=== PATIENT | female | born 1950 | race African-American/Black ===

== ENCOUNTER 2017-09-24 19:15 | Emergency (ER) | payer MEDICARE, BC ==
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
[2017-09-24] MEDS ORDERED: Proparacaine 0.5% Opth 15 ML BOT ONE (20:19)
[2017-09-24] MEDS ORDERED: Fluorescein Opthalmic Strip ONE (20:19)
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
[2017-09-24] MEDS ORDERED: traMADol HCl 50 MG TAB ONE (20:44)
== END 2017-09-24 20:05 | disposition home or self-care (01) ==
LOC: ERS 19:15
DX: S02.2XXA Fracture of nasal bones, initial encounter for closed fracture (principal); S05.01XA Injury of conjunctiva and corneal abrasion without foreign body, right eye, initial encounter; T14.8XXA Other injury of unspecified body region, initial encounter; E11.9 Type 2 diabetes mellitus without complications; I10 Essential (primary) hypertension; V89.2XXA Person injured in unspecified motor-vehicle accident, traffic, initial encounter
CPT/HCPCS: 70450; 70486; 72125

== ENCOUNTER 2019-10-15 21:55 | Inpatient (IN) | payer MEDICARE, BC, OTHER ==
[~2019-10-15 21:55] MED LIST: Iopamidol 370 76% 100 ML VIAL ONE
[2019-10-15] MEDS ORDERED: Ketamine 50 MG/ML (10ML VIAL) ONE (22:00)
[2019-10-15] MEDS ORDERED: Norepinephrine 4 MG/4 ML VIAL ONE (22:01)
[2019-10-15] MEDS ORDERED: fentaNYL Citrate/PF 2,000 MCG in Sodium Chloride 0.9% 60 ML IV SCH (22:08)
[2019-10-15 22:09] LABS: Hemoglobin 13.8 g/dL (12.0-16.0); Mean Corpuscular HGB CONC 31.1 g/dL (32.0-36.0); Mean Corpuscular Hemoglobin 30.2 pg (27.0-31.0); Mean Corpuscular Volume 97.3 fL (78.0-98.0); Platelet Count 416 thou/uL (130-400); RBC Distribution Width 12.6 % (11.5-14.5); Red Blood Cell (RBC) Count 4.56 mill/uL (4.20-5.40); White Blood Cell (WBC) Count 14.4 thou/uL (4.8-10.8)
[2019-10-15 22:12] LABS: PTT 28.1 SEC (22.9-36.1); Prothrombin Time 13.3 SEC (12.0-14.7)
[2019-10-15 22:25] LABS: Lymphocytes 69 % (21-51); MDiff Complete? YES; Monocytes 1 % (0-10); Neutrophil 30 % (42-75); Platelet Morphology Comment Appears Increased; RBC Morphology Normal
--- NOTE | 2019-10-15 22:25 | RAD ---
PORTABLE CHEST ONE VIEW: Date: 10-15-19 Time: 9:56 p.m. History: Chest pain. FINDINGS: The tip of the endotracheal tube is in the right main bronchus with atelectatic change in the left up per lobe. There is bilateral pulmonary edema. No pneumothoraces are seen. The report was called over the telephone to the Emergency Department physician at 10:20 p.m. POS: YASMEEN
[2019-10-15 22:36] LABS: ALT (SGPT) 32 U/L (8-55); AST (SGOT) 24 U/L (5-34); Albumin 4.6 g/dL (3.4-4.8); Alkaline Phosphatase 97 U/L (40-110); Anion Gap 19 mmol/L (10-20); BUN (Urea Nitrogen) 19 mg/dL (9.8-20.1); Bilirubin, Total 0.2 mg/dL (0.2-1.2); CK (CPK) 106 U/L (29-168); Calc. Creatinine Clearance 0 mL/min (70-130); Calcium 9.3 mg/dL (7.8-10.44); Carbon Dioxide 21 mmol/L (23-31); Chloride 102 mmol/L (98-107); Estimated GFR-MDRD 62; Globulin 3.4 g/dL (2.4-3.5); Glucose 415 mg/dL (80-115); Potassium 3.3 mmol/L (3.5-5.1); Sodium 139 mmol/L (136-145)
--- NOTE | 2019-10-15 22:40 | RAD ---
PORTABLE CHEST ONE VIEW: Date: 10-15-19 Time: 9:59 p.m. FINDINGS: There has been interval repositioning of the endotracheal tube with tip just above the level of the c ryan. Interval improvement in aeration of the left upper lobe is seen. There is bilateral pulmonary edema. No pneumothoraces or large effusions are seen. POS: [facility]
[2019-10-15] MEDS ORDERED: Furosemide 40 MG/4 ML VIAL ONE (22:42)
--- NOTE | 2019-10-15 23:05 | RAD ---
PORTABLE CHEST ONE VIEW: Date: 10-15-19 Time: 10:27 p.m. History: Central line placement. FINDINGS/IMPRESSION: Comparison is made with film earlier same date. There has been interval placement of a left subclavian central line with tip in the projection of the SVC. Nasogastric tube has been place into the stomach with tip excluded from the film. No pneumothor aces are seen. The remainder of the exam is stable. POS: YASME[facility]
[2019-10-15 23:17] LABS: Bacteria/HPF None Seen HPF (None Seen); Bilirubin Negative (Negative); Blood, Urine Trace (Negative); Clarity Turbid (Clear); Glucose, Urine (Dipstick) Greater than 1000 mg/dL (Negative); Leukocyte Negative Leu/uL (Negative); Nitrite Negative (Negative); Protein, Urine (Dipstick) 70 mg/dL (Neg-Trace); RBC/HPF 0-3 HPF (0-3); Squamous Epithelial 0-3 HPF (0-3); Urobilinogen Normal mg/dL (Less than 2); WBC/HPF 0-3 HPF (0-3)
[2019-10-15 23:21] LABS: Amphetamine Not Detected (NotDetected); Barbiturates Screen Not Detected (NotDetected); Benzodiazepine Screen Not Detected (NotDetected); Cocaine Metabolite Screen Not Detected (NotDetected); Medtox Control Line Valid? VALID (VALID); Medtox Reader # READER 4; Methadone Not Detected (NotDetected); Methamphetamine Not Detected (NotDetected); Opiate Screen Not Detected (NotDetected); Oxycodone Screen Not Detected (NotDetected); Phencyclidine (PCP) Not Detected (NotDetected); THC/Cannabinoid Screen Not Detected (NotDetected); Tricyclic Screen Not Detected (NotDetected)
--- NOTE | 2019-10-15 23:47 | CT ---
CT PULMONARY EMBOLISM WITH IV CONTRAST AND 3D POST PROCESSING: History: Respiratory failure. Dyspnea. Chest pain. FINDINGS: There is good contrast opacification of the pulmonary artery vasculature without filling defects to s uggest pulmonary embolism. The thoracic aorta is well opacified without aneurysm or dissection. There are small bilateral pleural effusions. There is consolidative change in the lower lung zones. There are patchy infiltrates bilaterally which may be due to infection or pulmonary edema. No pneumothorace s are seen. Endotracheal and nasogastric tubes are present. There is a left sided central venous cath eter present. IMPRESSION: No CT evidence of pulmonary embolism. POS: [facility]
[2019-10-16] MEDS ORDERED: Cefepime 2 GM VIAL ONE ×2 (00:10→00:13)
[2019-10-16] MEDS ORDERED: Midazolam HCl 5 mg/ml Vial ONE (00:34)
[2019-10-16] MEDS ORDERED: methylPREDNISolone Sod Succ/PF 125 MG/2 ML VIAL ONE (00:39)
[2019-10-16] MEDS ORDERED: Propofol BOLUS 1,000 MG/100 ML VIAL IV PRN ×2 (00:48→01:39)
[2019-10-16] MEDS ORDERED: DISCONTINUE PREVIOUS NARCOTIC PAIN MEDICATIONS AND BENZODIAZEPINES FS SCH ×2 (00:48→01:39)
[2019-10-16] MEDS ORDERED: Lorazepam 2 MG/ML VIAL SLOW IVP PRN (00:48)
[2019-10-16] MEDS ORDERED: Fentanyl BOLUS 250 ML IVPB PRN ×2 (00:48→01:39)
[2019-10-16] MEDS ORDERED: Morphine 2 MG/ML SYRINGE SLOW IVP PRN ×2 (00:48→01:39)
[2019-10-16] MEDS ORDERED: Propofol 1,000 MG/100 ML VIAL IV PRN (00:48)
[2019-10-16] MEDS ORDERED: Lactated Ringer's 1,000 ML IV SCH (01:00)
[2019-10-16] MEDS ORDERED: Dextrose 5% in Water 1,000 ML IV PRN (01:34)
[2019-10-16] MEDS ORDERED: Acetaminophen 650 MG Suppository PR PRN (01:34)
[2019-10-16] MEDS ORDERED: Ondansetron ODT 4 MG TAB PO PRN (01:34)
[2019-10-16] MEDS ORDERED: Acetaminophen 500 MG TAB PO PRN (01:34)
[2019-10-16] MEDS ORDERED: Ondansetron PF 4 MG/2 ML Vial IVP PRN (01:34)
[2019-10-16] MEDS ORDERED: Norepinephrine 8 MG in Dextrose 5% in Water 242 ML IVPB SCH (01:34)
[2019-10-16] MEDS ORDERED: Ventilator Sedation Protocol 1 EACH FS SCH (01:34)
[2019-10-16] MEDS ORDERED: HumaLOG 300 UNITS/3 ML VIAL SC PRN (01:34)
[2019-10-16] MEDS ORDERED: Dextrose 50% Abboject 50 ML SYRINGE SLOW IVP PRN (01:34)
[2019-10-16] MEDS ORDERED: CCU Electrolyte Replacement 1 EACH FS SCH (01:35)
[2019-10-16] MEDS ORDERED: Potassium Phosphate 12 MMOL in Sodium Chloride 0.9% 250 ML 250 ML IV PRN (01:38)
[2019-10-16] MEDS ORDERED: Potassium Chloride 20 MEQ TAB PO PRN (01:38)
[2019-10-16] MEDS ORDERED: Magnesium 2 GM/50 ML 2 GM in Premix Bag 1 BAG IVPB PRN (01:38)
[2019-10-16] MEDS ORDERED: Potassium Phosphate 9 MMOL in Sodium Chloride 0.9% 100 ML IVPB PRN (01:38)
[2019-10-16] MEDS ORDERED: Magnesium Oxide 400 MG TAB PO PRN ×2 (01:38)
[2019-10-16] MEDS ORDERED: Potassium Phosphate 15 MMOL in Sodium Chloride 0.9% 250 ML 250 ML IV PRN (01:38)
[2019-10-16] MEDS ORDERED: Potassium Chloride 40 MEQ in Premix Bag 1 BAG IVPB PRN (01:38)
[2019-10-16] MEDS ORDERED: Potassium Chloride 40 MEQ in Sodium Chloride 0.9% 250 ML 250 ML IVPB PRN (01:38)
[2019-10-16] MEDS ORDERED: PHOS-NAK 1 PKT PACK PO PRN ×2 (01:38)
[2019-10-16] MEDS ORDERED: CCU ELECTROLYTE REPLACEMENT PROTOCOL FS PRN (01:38)
[2019-10-16] MEDS ORDERED: fentaNYL Citrate/PF 2,000 MCG in Sodium Chloride 0.9% 60 ML IV SCH (01:39)
[2019-10-16] MEDS: Sodium Chloride 0.9% 1,000 ML IV SCH ×2 (01:57→20:24)
[2019-10-16] MEDS: HumaLOG 300 UNITS/3 ML VIAL SC PRN (02:31)
--- NOTE | 2019-10-16 03:03 | HP ---
PRIMARY CARE PROVIDER: Dr. Wooten. PRIMARY ADVERTISING SALES EXECUTIVE: Dr. Abbott. CHIEF COMPLAINT: Shortness of breath. HISTORY OF PRESENT ILLNESS: This is a 69-year-old female, who initially presented to [facility] Emergency Department in transport by EMS personnel after patient's called EMS due to his having increased shortness of breath and respiratory distress. The patient's provides the bulk of the history in conjunction with review of electronic medical record and discussing with the emergency room attending given patient's respiratory failure and mechanical ventilation. noted that his with increased respiratory distress beginning abruptly approximately 9:00 p.m. EMS personnel arrived, noting his in respiratory distress with O2 saturations in the 70% range. The patient was given continuous positive airway pressure ventilation en route; however, after evaluation in the emergency room, underwent intubation in the emergency room. denies any recent exposure history, family members with similar illness, or travel history. The patient received influenza vaccination this season, however, no new medications or other vaccinations recently. The denies any chronic lung conditions and states his quit smoking 20 years prior to this evaluation. The patient has never required mechanical ventilation in the past, but does have a history of seasonal allergies, taking oral medication intermittently. In the emergency room, the patient underwent general evaluation including chest imaging, showing bilateral infiltrates, right greater than left with associated pulmonary edema. CT angiogram was also performed showing no evidence for pulmonary embolus. The patient did meet sepsis criteria, receiving multiple medications including Solu-Medrol, vancomycin, cefepime, Lasix, fentanyl, intravenous normal saline in addition to Versed, ketamine, and Zemuron. The patient was also noted with hypotension and initiated on Levophed infusion at 5 mcg/minute. PAST MEDICAL HISTORY: 1. Diabetes mellitus type 2. 2. Hyperlipidemia. 3. Hypertension. 4. Seasonal allergies. 5. Osteoarthritis. PAST SURGICAL HISTORY: Status post bilateral total knee arthroplasty. CURRENT MEDICATIONS: 1. Omeprazole 20 mg p.o. daily. 2. Singulair 10 mg p.o. daily. 3. Metoprolol 25 mg p.o. daily. 4. Kombiglyze XR 2.03/1000 mg two tablets p.o. daily. 5. Meloxicam 7.5 mg p.o. b.i.d. 6. Losartan/hydrochlorothiazide 100/12.5 mg one tablet p.o. daily. 7. Farxiga 10 mg p.o. daily. ALLERGIES: NO KNOWN DRUG ALLERGIES. FAMILY HISTORY: Positive for hypertension and diabetes mellitus. SOCIAL HISTORY: The patient resides in [place], [place]. Accompanied by her family in the critical care unit. No current tobacco, alcohol, or illicit drug use. Quit smoking greater than 20 years prior to this evaluation. Functional of all activities of daily living. REVIEW OF SYSTEMS: Unobtainable as the patient on mechanical ventilation. PHYSICAL EXAMINATION: VITAL SIGNS: In the emergency room, blood pressure 138/93, pulse 141, respiratory rate 38, temperature 98.5 degrees Fahrenheit, O2 saturation 76% on BiPAP, noninvasive mechanical ventilation. GENERAL APPEARANCE: This is a 69-year-old female, agitated, on current mechanical ventilation. HEENT: Pupils are equal, round, reactive to light and accommodation. Extraocular muscles are intact. No scleral icterus. Mild conjunctival injection. Nares patent. OP is clear. ET tube in place. NECK: Supple. No cervical adenopathy. No thyromegaly. No carotid bruits. No JVD appreciated. CHEST: Diminished breath sounds in the bases bilaterally with occasional crackles. CARDIOVASCULAR: S1, S2 with tachycardia. No murmur, rub, or gallop appreciated. ABDOMEN: Rounded, soft, nontender, and nondistended. Bowel sounds are positive in all 4 quadrants. There is no hepatosplenomegaly. No abdominal bruits. No rebound or guarding appreciated. EXTREMITIES: Warm and dry with fair turgor. No clubbing, cyanosis, or asymmetric edema appreciated. Pulses palpable distally at the dorsalis pedis, posterior tibial, and popliteal arteries bilaterally. Capillary refill less than 2 seconds. NEUROLOGIC: Agitated, awake, nodding her head, moving all extremities. PERTINENT LABORATORY AND X-RAY FINDINGS: Sodium 139, potassium 3.3, chloride 102, CO2 21, anion gap of 19, BUN 19, creatinine 1.06, estimated GFR 62, glucose 415. Lactic acid level 7.3, calcium 9.3. LFTs within normal limits. Troponin I negative x1. BNP 405. TSH 2.25. CBC showed a white blood cell count of 14.4, hemoglobin 13.8, hematocrit 44.4, platelet count 416 with 30% neutrophils and 69% lymphocytes. D-dimer 1.10. Urinalysis positive for glucose and protein, 2+ amorphous crystals. Urine drug screen dated 10/15/2019, negative. Influenza A and B antigen dated 10/16/2019, negative. Portable chest x-ray dated 10/15/2019, showed bilateral pulmonary edema. CT angiogram of the chest dated 10/15/2019, showed no evidence for pulmonary embolus. Patchy infiltrates bilaterally due to infection versus pulmonary edema. EKG dated 10/15/2019 by my interpretation shows sinus tachycardia with heart rates in the 140s. Normal R-wave progression noted in the precordial leads. Normal axis. ST-T wave changes noted in leads V3 through V6 in leads II, III and F. ASSESSMENT/PLAN: 1. Severe sepsis with septic shock. The patient will be admitted to the Critical Care Unit. We will continue severe sepsis protocol. We will continue Levophed infusion to maintain systolic blood pressure greater than or equal to 70 with a mean arterial pressure of 65 or greater. Suspect secondary to pneumonia as outlined below. Continue general sepsis protocol and repeat lactic acid level. 2. Acute hypoxic respiratory failure. We will continue mechanical ventilation with SIMV. Continue FiO2 of 90%, titrating to clinical response. Repeat portable chest x-ray in the a.m. in addition to ABGs. Consult Pulmonology Service in the a.m. for further ventilatory management. 3. Community-acquired bacterial pneumonia. Suspected. Blood and urine cultures pending. Continue cefepime 2 g IV q.12 hours with additional Levaquin 750 mg IV q.24 hours. Add DuoNeb q.4 hours. 4. Diabetes mellitus type 2. Provide insulin sliding scale for reflexive coverage. Serial Accu-Cheks q.6 hours. ADA diet when tolerating oral intake. 5. Hypertension. Currently hypotensive due to sepsis. Hold all blood pressure medications and monitor clinical response. 6. Prophylaxis. SCDs while in bed. Pepcid 20 mg IV q.12 hours. CODE STATUS: Full. Surrogate medical decision maker is the patient's spouse. Total critical care time is 40 minutes. Job ID: [id number]
[2019-10-16 03:59] LABS: Actual Bicarbonate (HCO3a) 20.2 mEq/L (22-28); Analyzer IN Cardio ER; Base Excess (BEa) -5.5 mEq/L (-2.0 to +3.0); CO2 Tension 40.1 mmHg (35.0-45.0); Calcium, Ionized 1.12 mmol/L (1.12-1.30); Carboxyhemoglobin (COHb) 0.2 gm% (0.0-3.0); O2 Tension (PaO2) 94.9 mmHg (> 70.0); Potassium - ABG Lab 3.27 mmol/L (3.70-5.30); pH, Arterial 7.32 (7.35-7.45)
[2019-10-16 04:00] LABS: ALV-art Gradient 567.975 (0-20); Puncture Site RBA
[2019-10-16 04:44] LABS: Hemoglobin 12.4 g/dL (12.0-16.0); Lymphocytes 4 % (21-51); MDiff Complete? YES; Mean Corpuscular HGB CONC 33.2 g/dL (32.0-36.0); Mean Corpuscular Hemoglobin 30.5 pg (27.0-31.0); Mean Platelet Volume 6.9 fL (7.4-10.4); Monocytes 1 % (0-10); Neutrophil 95 % (42-75); Platelet Count 369 thou/uL (130-400); Platelet Morphology Comment Appears Adequate; RBC Distribution Width 12.6 % (11.5-14.5); RBC Morphology Normal; Red Blood Cell (RBC) Count 4.07 mill/uL (4.20-5.40); White Blood Cell (WBC) Count 14.5 thou/uL (4.8-10.8)
[2019-10-16 04:52] LABS: Lactic Acid 1.8 mmol/L (0.5-2.2)
[2019-10-16 05:00] LABS: ALT (SGPT) 49 U/L (8-55); AST (SGOT) 69 U/L (5-34); Albumin 3.9 g/dL (3.4-4.8); Alkaline Phosphatase 84 U/L (40-110); Anion Gap 12 mmol/L (10-20); BUN (Urea Nitrogen) 18 mg/dL (9.8-20.1); Bilirubin, Total 0.3 mg/dL (0.2-1.2); Calc. Creatinine Clearance 64 mL/min (70-130); Calcium 8.7 mg/dL (7.8-10.44); Carbon Dioxide 26 mmol/L (23-31); Chloride 105 mmol/L (98-107); Estimated GFR-MDRD 82; Glucose 275 mg/dL (80-115); Potassium 3.6 mmol/L (3.5-5.1); Protein, Total 6.9 g/dL (6.0-8.3); Sodium 139 mmol/L (136-145)
[2019-10-16 06:55] LABS: Base Excess (BEa) -0.4 mEq/L (-2.0 to +3.0); Calcium, Ionized 1.09 mmol/L (1.12-1.30); Carboxyhemoglobin (COHb) 0.6 gm% (0.0-3.0); O2 Tension (PaO2) 257.8 mmHg (> 70.0); Potassium - ABG Lab 3.45 mmol/L (3.70-5.30); pH, Arterial 7.53 (7.35-7.45)
[2019-10-16 06:58] LABS: CO2 Tension 25.8 mmHg (35.0-45.0); Puncture Site RRA
[2019-10-16] MEDS: Famotidine/PF 20 mg/2ml Vial SLOW IVP SCH ×2 (08:36→20:19)
[2019-10-16] MEDS ORDERED: Cefepime 2 GM VIAL IVPB SCH (09:00)
--- NOTE | 2019-10-16 09:50 | PDOC.HOSPP ---
- Subjective Encounter Date: 10/16/19 Encounter Time: 09:48 Subjective: intubated, no painn or SOB - Objective Vital Signs & Weight: Vital Signs (12 hours) Temp Pulse Resp BP Pulse Ox 10/16/19 08:00 16 96 10/16/19 07:00 99.3 F 10/16/19 06:42 104 H 10/16/19 06:00 24 H 10/16/19 04:04 100 10/16/19 04:03 125 H 112/73 10/16/19 04:02 100 10/16/19 04:00 97.8 F 24 H 10/16/19 01:34 24 H 10/16/19 01:01 127 H 10/16/19 01:00 99 10/16/19 00:45 97.9 F Weight Admit Weight 140 lb 10.479 oz Weight 142 lb 3.17 oz Most Recent Monitor Data Heart Rate from ECG 126 NIBP 112/66 NIBP BP-Mean 81 Respiration from ECG 19 SpO2 97 I&O: 10/15/19 10/16/19 10/17/19 06:59 06:59 06:59 Intake Total 486.4 0 Output Total 1040 250 Balance -553.6 -250 Result Diagrams: 10/16/19 04:07 10/16/19 04:07 Radiology Reviewed by me: Yes (cxr- ET tube, bilat infiltrates) EKG Reviewed by me: Yes (sinus tachycardia) Hospitalist ROS - Medication Medications: Active Medications Generic Name Dose Route Start Last Admin Trade Name Freq PRN Reason Stop Dose Admin Albuterol/Ipratropium 3 ml 10/16/19 02:30 10/16/19 06:41 Duoneb NEB 3 ml [id number] NUVIA Administration Famotidine 20 mg 10/16/19 09:00 10/16/19 08:36 Pepcid SLOW IVP 20 mg Q12HR NUVIA Administration Levofloxacin 750 mg/ Device 150 mls @ 100 mls/hr 10/16/19 02:00 10/16/19 01: 57 IVPB 150 mls Q24HR NUVIA Administration Sodium Chloride 1,000 mls @ 50 mls/hr 10/16/19 01:34 10/16/19 01:57 Normal Saline 0.9% IV 1,000 mls .Q20H NUVIA Administration Insulin Human Lispro 0 units 10/16/19 01:34 10/16/19 02:31 Humalog SC 3 unit .BEDTIME SLIDING SC PRN Administration Bedtime Correctional Scale Sodium Chloride 10 ml 10/16/19 09:00 10/16/19 08:36 Flush - Normal Saline IVF 10 ml Q12HR NUVIA Administration - Exam General Appearance: awake alert Neck: no JVD Heart: RRR, no murmur Respiratory - other findings: coarse BS with rhonchi, diffuse Gastrointestinal: soft, non-tender, normal bowel sounds Extremities: no edema Hosp A/P (1) Septic shock Code(s): A41.9 - SEPSIS, UNSPECIFIED ORGANISM; R65.21 - SEVERE SEPSIS WITH SEPTIC SHOCK Status: Acute (2) Acute respiratory failure with hypoxia Code(s): J96.01 - ACUTE RESPIRATORY FAILURE WITH HYPOXIA Status: Acute (3) PNA (pneumonia) Code(s): J18.9 - PNEUMONIA, UNSPECIFIED ORGANISM Status: Acute Qualifiers: Laterality: bilateral Lung location: unspecified part of lung (4) HTN (hypertension) Code(s): I10 - ESSENTIAL (PRIMARY) HYPERTENSION Status: Chronic Qualifiers: Hypertension type: essential hypertension Qualified Code(s): I10 - Essential (primary) hypertension (5) DM2 (diabetes mellitus, type 2) Status: Chronic Qualifiers: Diabetes mellitus long term care administrator insulin use: without fdc use Diabetes mellitus complication status: without complication Qualified Code(s): E11.9 - Type 2 diabetes mellitus without complications - Plan on vent- discuss with chief projectionist on iv pressor- taper as able on iv antibx, await C&S findkaveh
--- NOTE | 2019-10-16 10:21 | RAD ---
FRONTAL RADIOGRAPH CHEST: Date: 10/16/19 COMPARISON: 10/15/19. HISTORY: Respiratory failure - Pneumonia. FINDINGS: Stable endotracheal tube, nasogastric tube, and left-sided vascular catheter. There is nonspecific in terstitial and alveolar opacity in bilateral perihilar regions, as well as the medial and inferior a spect of both lungs, not significantly changed. No large volume pleural effusion. No pneumothorax. Se bebe degenerative change of right glenohumeral joint with deformity of the right humeral head noted. IMPRESSION: Nonspecific diffuse interstitial and alveolar opacity. Findings may be related to infectious pneumoni tis/aspiration or edema. POS: H
[2019-10-16] MEDS: Cefepime 2 GM in Sodium Chloride 0.9% 100 ML IVPB SCH (11:38)
[2019-10-16] MEDS ORDERED: Cefepime 2 GM in Sodium Chloride 0.9% 100 ML IVPB SCH (12:00)
[2019-10-16] MEDS: Propofol 1,000 MG/100 ML VIAL IV PRN ×2 (12:58→17:13)
[2019-10-16] MEDS: Lorazepam 2 MG/ML VIAL SLOW IVP PRN ×3 (13:31→20:18)
[2019-10-16] MEDS ORDERED: Sodium Chloride 0.9% 500 ML IV SCH (19:15)
--- NOTE | 2019-10-16 23:36 | CON ---
DATE OF CONSULTATION: HISTORY OF PRESENT ILLNESS: Ms. Pinto is a 69-year-old female who was awake , mechanically ventilated when I saw her earlier today. She relayed she wanted the endotracheal tube out, but her family says this is not an end of life request. Current history is remarkable for having shortness of breath, respiratory distress for at least 24 hours prior to admission. She is a nonsmoker and nondrinker. She presented, requiring noninvasive ventilation, subsequently was intubated. 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 MEDICATIONS: Prior to admission, she is on; 1. Singulair. 2. Metoprolol. 3. Kombiglyze XR tablets a day. 4. Meloxicam. 5. Losartan. 6. Hydrochlorothiazide. 7. Farxiga. ALLERGIES: SHE HAS NO KNOWN DRUG ALLERGIES. FAMILY HISTORY: Positive for hypertension and diabetes. SOCIAL HISTORY: Nonsmoker, nondrinker. She smoked 20 years ago but has not smoked recently. REVIEW OF SYSTEMS: Ten-point is negative per the . PHYSICAL EXAMINATION: VITAL SIGNS: Heart rate is 110, blood pressure is 94/53, respiratory rate is 19 , and oximetry is 100%. HEENT: Pupils are reactive. Sclerae are anicteric. Extraocular movements are full. NECK: Supple without lymphadenopathy. LUNGS: Clear. HEART: Regular rhythm. S1, S2 normal. ABDOMEN: Soft and nontender. EXTREMITIES: Without clubbing, cyanosis, or edema. NEUROLOGIC: Grossly nonfocal. LABORATORY DATA: White count 14.5, hemoglobin 12.4, and platelets 369. Sodium 139, potassium 3.6, chloride 105, bicarb 26, BUN 18, and creatinine 0.83. BNP was 405. Liver enzymes were normal with the exception of an AST of 69. Chest radiograph is remarkable for bilateral alveolar infiltrates. IMPRESSION: Pneumonia with respiratory failure. I do not think extubating her would be bernardo at this point in time. We will work at keeping her sedated while she requires mechanical ventilation and reassess her on a daily basis. I met with the family and answered all their questions. Job ID: [id number] Critical care time 35 minutes [facility]
[2019-10-17] MEDS: Cefepime 2 GM in Sodium Chloride 0.9% 100 ML IVPB SCH ×3 (01:00→22:45)
[2019-10-17] MEDS: Propofol 1,000 MG/100 ML VIAL IV PRN ×2 (05:05→14:08)
[2019-10-17 05:25] VITALS: BMI 27.8
[2019-10-17 07:34] LABS: Actual Bicarbonate (HCO3a) 22.5 mEq/L (22-28); Base Excess (BEa) -1.1 mEq/L (-2.0 to +3.0); CO2 Tension 33.2 mmHg (35.0-45.0); Calcium, Ionized 1.17 mmol/L (1.12-1.30); Carboxyhemoglobin (COHb) 0.6 gm% (0.0-3.0); Hemoglobin (Hb) 10.7 g/dL (12.0-16.0); O2 Tension (PaO2) 83.9 mmHg (> 70.0); Potassium - ABG Lab 3.54 mmol/L (3.70-5.30); pH, Arterial 7.45 (7.35-7.45)
[2019-10-17 07:36] LABS: Puncture Site RRA
[2019-10-17] MEDS: Famotidine/PF 20 mg/2ml Vial SLOW IVP SCH ×2 (08:09→20:37)
--- NOTE | 2019-10-17 08:12 | PDOC.HOSPP ---
- Subjective Encounter Date: 10/17/19 Encounter Time: 08:10 Subjective: intubated, sedated - Objective Vital Signs & Weight: Vital Signs (12 hours) Temp Pulse Resp Pulse Ox 10/17/19 08:01 100 10/17/19 08:00 12 10/17/19 07:25 120 H 10/17/19 07:00 99.0 F 10/17/19 06:00 26 H 10/17/19 04:00 17 10/17/19 03:12 111 H 10/17/19 03:00 98.6 F 10/17/19 02:00 15 10/17/19 00:00 99.0 F 14 10/16/19 22:44 111 H 10/16/19 22:43 100 10/16/19 22:00 23 H Weight Admit Weight 140 lb 10.479 oz Weight 141 lb 8.588 oz Most Recent Monitor Data Heart Rate from ECG 117 NIBP 110/67 NIBP BP-Mean 81 Respiration from ECG 19 SpO2 100 I&O: 10/16/19 10/17/19 10/18/19 06:59 06:59 06:59 Intake Total 486.4 1699.6 Output Total 1040 1520 145 Balance -553.6 179.6 -145 Result Diagrams: 10/16/19 04:07 10/16/19 04:07 Additional Labs: Accuchecks 10/17/19 10/17/19 10/16/19 05:59 00:22 17:21 POC Glucose 155 H 178 H 164 H 10/16/19 10/16/19 11:43 02:31 POC Glucose 183 H 285 H Hospitalist ROS - Medication Medications: Active Medications Generic Name Dose Route Start Last Admin Trade Name Freq PRN Reason Stop Dose Admin Albuterol/Ipratropium 3 ml 10/16/19 02:30 10/17/19 07:24 Duoneb NEB 3 ml [id number] NUVIA Administration Famotidine 20 mg 10/16/19 09:00 10/17/19 08:09 Pepcid SLOW IVP 20 mg Q12HR NUVIA Administration Levofloxacin 750 mg/ Device 150 mls @ 100 mls/hr 10/16/19 02:00 10/17/19 02: 41 IVPB 150 mls Q24HR NUVIA Administration Sodium Chloride 1,000 mls @ 50 mls/hr 10/16/19 01:34 10/16/19 20:24 Normal Saline 0.9% IV 1,000 mls .Q20H NUVIA Administration Cefepime HCl 2 gm/ Sodium 100 mls @ 200 mls/hr 10/16/19 12:00 10/17/19 01:00 Chloride IVPB 100 mls 1200,2359 NUVIA Administration Midazolam HCl 100 mls @ 0 mls/hr 10/16/19 19:12 10/16/19 22:20 Versed IVPB 100 mls INF PRN Administration Sedation Protocol Titrate Insulin Human Lispro 0 units 10/16/19 01:34 10/16/19 02:31 Humalog SC 3 unit .BEDTIME SLIDING SC PRN Administration Bedtime Correctional Scale Lorazepam 2 mg 10/16/19 01:39 10/16/19 20:18 Ativan SLOW IVP 11/15/19 01:39 2 mg Q1H PRN Administration Breakthrough agitation Propofol 1,000 mg 10/16/19 01:39 10/17/19 05:05 Diprivan IV 11/15/19 01:39 1,000 mg INF PRN Administration TO ACHIEVE GOAL RASS Protocol Sodium Chloride 10 ml 10/16/19 09:00 10/17/19 08:09 Flush - Normal Saline IVF 10 ml Q12HR NUVIA Administration - Exam Neck: no JVD Heart: RRR Heart - other findings: hyperdynamic S1S2, 2/6 sys murmur Gastrointestinal: soft, normal bowel sounds Extremities: no edema Hosp A/P (1) Septic shock Code(s): A41.9 - SEPSIS, UNSPECIFIED ORGANISM; R65.21 - SEVERE SEPSIS WITH SEPTIC SHOCK Status: Acute (2) Acute respiratory failure with hypoxia Code(s): J96.01 - ACUTE RESPIRATORY FAILURE WITH HYPOXIA Status: Acute (3) PNA (pneumonia) Code(s): J18.9 - PNEUMONIA, UNSPECIFIED ORGANISM Status: Acute Qualifiers: Laterality: bilateral Lung location: unspecified part of lung (4) HTN (hypertension) Code(s): I10 - ESSENTIAL (PRIMARY) HYPERTENSION Status: Chronic Qualifiers: Hypertension type: essential hypertension Qualified Code(s): I10 - Essential (primary) hypertension (5) DM2 (diabetes mellitus, type 2) Status: Chronic Qualifiers: Diabetes mellitus keno terminal operator insulin use: without fpc use Diabetes mellitus complication status: without complication Qualified Code(s): E11.9 - Type 2 diabetes mellitus without complications - Plan on vent- discuss with collect on delivery clerk on iv pressor- taper as able on iv antibx, await C&S findins rpt cxr
[2019-10-17] MEDS ORDERED: Iopamidol 370 76% 100 ML VIAL ONE (09:32)
--- NOTE | 2019-10-17 09:33 | RAD ---
PORTABLE CHEST ONE VIEW: 10/17/2019 8:06 a.m. HISTORY: Respiratory failure. Pneumonia. FINDINGS: There is mild interval improvement in the bilateral infiltrates since the last exam. The remainder of the exam is otherwise stable. POS: OFF
--- NOTE | 2019-10-17 11:25 | PRG ---
DATE OF SERVICE: 10/17/2019 SUBJECTIVE: Ms. Pinto is in no distress. She awakened. She moved all her extremities. OBJECTIVE: VITAL SIGNS: Blood pressure is 136/104, heart rate was in the 120 to 130 range, respiratory rates in the 20s, oximetry is 96 to 98. LUNGS: Clear. HEART: Regular rhythm. Rapid rate. ABDOMEN: Soft and nontender. EXTREMITIES: Without clubbing, cyanosis, or edema. NEURO: Nonfocal. LABORATORY DATA: There is no CBC or electrolytes today. Blood gas today shows a pH of 7.45, pCO2 of 33, pO2 of 83 on 30%. Her chest x-ray continues to improve. Sodium was 144, potassium 3.5, chloride 111, ionized calcium is 1.17. IMPRESSION: Respiratory failure, presumably secondary to pneumonia. Her first chest radiograph shows atelectasis of her left lung, which is secondary to right mainstem intubation. Rapid improvement of her radiographs and argument for a cardiac component to her pulmonary infiltrates. diastolic dysfunction with hypertension combined with her mitral regurgitation is contributed to her problem. I would recommend Cardiology endpoint at some point. Her BNP was 405, which is not dramatically elevated, but it may be an argument. There is a cardiac component to this. She underwent spontaneous breathing trial this morning. She was evaluated multiple times. She passed spontaneous breathing trial and passed a leak test. Her minute volume was 8 L a minute. She subsequently been extubated and placed on nasal cannula. She is having no postextubation respiratory issues. CRITICAL CARE TIME: 30 minutes. Job ID: [id number]
[2019-10-17 11:43] LABS: Base Excess (BEa) -6.3 mEq/L (-2.0 to +3.0); CO2 Tension 36.7 mmHg (35.0-45.0); Calcium, Ionized 1.22 mmol/L (1.12-1.30); Carboxyhemoglobin (COHb) 0.9 gm% (0.0-3.0); Hemoglobin (Hb) 12.3 g/dL (12.0-16.0); Potassium - ABG Lab 3.74 mmol/L (3.70-5.30); pH, Arterial 7.33 (7.35-7.45)
[2019-10-17 11:47] LABS: ALV-art Gradient 187.825 (0-20); O2 Tension (PaO2) 51.5 mmHg (> 70.0); Puncture Site RRA
[2019-10-17] MEDS ORDERED: Metoprolol Tartrate 5 MG/5 ML VIAL ONE ×3 (11:57→16:43)
[2019-10-17] MEDS ORDERED: Metoprolol Tartrate 5 MG/5 ML VIAL IVP SCH ×2 (12:15→19:30)
[2019-10-17] MEDS ORDERED: Diltiazem HCl 125 MG, Admixture Fee 1 EACH in Sodium Chloride 0.9% 100 ML IVPB SCH (12:45)
[2019-10-17] MEDS ORDERED: Midazolam HCl 2 mg/2 ml Vial ONE (12:45)
--- NOTE | 2019-10-17 12:52 | RAD ---
RADIOGRAPH CHEST 1 VIEW: DATE: 10/17/2019 TIME: 12:22 PM HISTORY: 69-year-old female in respiratory distress COMPARISON: 10/17/2019 8:06 AM FINDINGS: Endotracheal tube and esophagogastric tube have been removed. Left subclavian central venous catheter remains. Bilateral mixed interstitial and alveolar infiltrates heterogeneously distributed in bilateral mid and lower lung zones appears slightly worse. No cardiomegaly. Small bilateral pleural e ffusions, increased on the left. Chronic subluxation-dislocation of right glenohumeral joint with severe chronic bone loss and deformity. IMPRESSION: 1) moderately severe bilateral infiltrates, which could represent pulmonary edema or multifocal pneum onia. 2) these have apparently slightly worsened since earlier today. 3) small bilateral pleural effusions. 4) status post extubation.
[2019-10-17] MEDS ORDERED: Vecuronium 10 MG VIAL ONE (12:59)
[2019-10-17] MEDS ORDERED: Midazolam HCl 2 mg/2 ml Vial SLOW IVP SCH (13:00)
[2019-10-17] MEDS ORDERED: EPINEPHrine 1 MG/10 ML Abboject SYRINGE ONE (13:10)
[2019-10-17] MEDS ORDERED: Atropine Sulfate 1 mg/10 ml Syringe ONE (13:12)
[2019-10-17] MEDS ORDERED: Vecuronium 10 MG VIAL IV SCH (13:15)
[2019-10-17] MEDS ORDERED: Sodium Chloride 0.9% 1,000 ML IV SCH (13:15)
[2019-10-17 14:12] LABS: Actual Bicarbonate (HCO3a) 15.8 mEq/L (22-28); Base Excess (BEa) -11.1 mEq/L (-2.0 to +3.0); Calcium, Ionized 1.11 mmol/L (1.12-1.30); Carboxyhemoglobin (COHb) 0.5 gm% (0.0-3.0); Hemoglobin (Hb) 11.8 g/dL (12.0-16.0)
[2019-10-17 14:16] LABS: O2 Tension (PaO2) 57.2 mmHg (> 70.0); pH, Arterial 7.23 (7.35-7.45)
[2019-10-17 14:17] LABS: Puncture Site LRA
[2019-10-17] MEDS: Sodium Chloride 0.9% 1,000 ML IV SCH ×2 (14:17→20:47)
[2019-10-17 14:25] LABS: CKMB 17.9 ng/mL (0-6.6)
--- NOTE | 2019-10-17 14:30 | RAD ---
PORTABLE CHEST ONE VIEW: 10/17/2019 1:37 p.m. HISTORY: Respiratory failure. FINDINGS: There has been interval placement of an endotracheal tube with the tip about 2.5 cm above the level o f the yoselin since the earlier exam of 12:22 p.m. A nasogastric tube has been placed and can be trace d into the stomach with the tip excluded from the film. The left subclavian central line remains in p lace. There has been interval worsening of bilateral alveolar en interstitial opacities, likely from edema since the previous study. No pneumothoraces are seen. POS: OFF
[2019-10-17] MEDS ORDERED: Sodium Bicarb 50 MEQ/50 ML VIAL ONE (14:38)
[2019-10-17] MEDS ORDERED: Digoxin 0.5 MG/2 ML AMP ONE (14:41)
[2019-10-17] MEDS ORDERED: Diazepam 10 MG/2 ML SYRINGE IVP SCH (14:45)
[2019-10-17] MEDS ORDERED: Sodium Bicarb 50 MEQ/50 ML VIAL IVP SCH (15:00)
[2019-10-17] MEDS ORDERED: Digoxin 0.5 MG/2 ML AMP SLOW IVP SCH (15:00)
[2019-10-17] MEDS ORDERED: Aspirin 300 MG Suppository ONE ×2 (15:05→15:07)
[2019-10-17 15:08] LABS: Actual Bicarbonate (HCO3a) 19.1 mEq/L (22-28); Base Excess (BEa) -4.8 mEq/L (-2.0 to +3.0); CO2 Tension 31.4 mmHg (35.0-45.0); Calcium, Ionized 1.04 mmol/L (1.12-1.30); Carboxyhemoglobin (COHb) 0.4 gm% (0.0-3.0); Hemoglobin (Hb) 11.3 g/dL (12.0-16.0); Potassium - ABG Lab 2.82 mmol/L (3.70-5.30)
[2019-10-17] MEDS ORDERED: Lidocaine 1% (PF) 30 ML VIAL ONE (15:08)
[2019-10-17] MEDS ORDERED: Heparin (Artline) 1,000 ML ONE (15:08)
[2019-10-17] MEDS ORDERED: Aspirin 300 MG Suppository PR SCH (15:15)
[2019-10-17] MEDS ORDERED: DOPamine 400 MG/D5W 250 ML 250 ML ONE (15:41)
[2019-10-17] MEDS ORDERED: Heparin (Artline) 500 ML ONE (15:57)
--- NOTE | 2019-10-17 16:36 | CCL ---
DATE OR PROCEDURE: 10/16/19 PROCEDURE: Balloon pump. INDICATION: Cardiogenic shock, severe mitral regurgitation. Dr. Coburn did a cardiac catheterization showing severe three vessel coronary disease. The echocard iogram showed severe wide open mitral regurgitation. The coronary arteries are not amenable to percut aneous intervention. The patient therefore had an 8 Colombian sheath placed and a 7.5 Colombian intra-aorti c balloon pump was placed just below the left subclavian, 34 mm balloon. Heart rate was 150. The ball oon pump was not inflating and deflating properly. Therefore, 2.5 mg of Metoprolol followed by anothe r 2.5 mg total of 5 mg was given. The heart rate is now down to 118 and the balloon pump is filling w ell. Patient remains in cardiogenic shock. CONCLUSION: 1. Cardiogenic shock. 2. Successful balloon pump placement.
[2019-10-17 16:53] LABS: O2 Tension (PaO2) 51.2 mmHg (> 70.0); Puncture Site ALINE
[2019-10-17] MEDS ORDERED: Heparin 25,000 units/D5W 500 ML IV SCH (17:00)
[2019-10-17] MEDS ORDERED: Heparin 10,000 UNITS/1 ML VIAL SLOW IVP SCH (17:00)
[2019-10-17] MEDS ORDERED: Heparin 10,000 UNITS/ 10 ML VIAL SLOW IVP SCH (17:15)
--- NOTE | 2019-10-17 18:53 | PRG ---
DATE OF SERVICE: 10/17/2019 SUBJECTIVE: Ms. Pinto continued to decline post intubation. Followup external cardiac monitoring suggested very low cardiac index. An echocardiogram was repeated and showed severe mitral regurgitation. She was taken to cardiac catheterization lab. It is anticipated that she may require transfer to [place]. At the time she was transferred to cardiac catheterization lab, she was on bilevel ventilation. Blood gases were done in the cardiac chemical laboratory chief, which led to further adjustments to mechanical ventilation. CRITICAL CARE TIME: 30 minutes. Job ID: [id number]
[2019-10-17 19:14] LABS: CKMB 35.7 ng/mL (0-6.6)
--- NOTE | 2019-10-17 19:56 | CON ---
DATE OF CONSULTATION: HISTORY OF PRESENT ILLNESS: The patient is a 69-year-old woman, who presents with acute onset of dyspnea and tachycardia. The patient has no previous cardiac history. She was admitted to the hospital with increasing dyspnea and respiratory failure. The patient was emergently intubated. The patient today was extubated. She developed a progressive dyspnea. She denied having any chest discomfort. She was noted to have abnormal electrocardiogram. The patient had to be reintubated. PAST MEDICAL HISTORY: 1. Diabetes mellitus. 2. Hypertension. 3. Dyslipidemia. PAST SURGICAL HISTORY: SOCIAL HISTORY: Nonsmoker. ALLERGIES: NO KNOWN DRUG ALLERGIES. MEDICATIONS: See nursing list. PHYSICAL EXAMINATION: GENERAL/VITAL SIGNS: This is an elderly woman, who is reintubated with a blood pressure of 90/65. NECK: Full. LUNGS: Crackles throughout both lung bases. HEART: Regular rate and rhythm. Normal S1, S2 with tachycardia. ABDOMEN: Distended. EXTREMITIES: Show trace edema. LABORATORY DATA: White blood cell count 14.5, hemoglobin 12.4, hematocrit 37.5, platelets are 369. Her sodium is 139, potassium 3.6, chloride 105, bicarbonate 26, BUN 18, creatinine 0.83, glucose is 183. Her EKG revealed her to have normal sinus rhythm, marked ST-T wave abnormality suggestive of ischemia. Chest x-ray severe bilateral infiltrates with small pleural effusions. IMPRESSION: 1. Respiratory failure. 2. Pneumonia. 3. Ischemic EKG changes. 4. Hypertension. 5. Diabetes mellitus. The patient developed respiratory distress, actually she was extubated. Her EKG revealed evidence of significant ischemia. The patient was treated with IV Cardizem. We will check serial cardiac enzymes. We will follow this patient with you through her hospitalization. This was a critical care note, 40 minutes. Job ID: [id number] [facility]
[2019-10-17] MEDS ORDERED: Metoprolol Tartrate 5 MG/5 ML VIAL IVP PRN (19:59)
[2019-10-17] MEDS ORDERED: DOPamine 400 MG/D5W 250 ML 250 ML IVPB SCH (20:00)
[2019-10-17] MEDS: HumaLOG 300 UNITS/3 ML VIAL SC PRN (20:40)
[2019-10-17 21:41] VITALS: BP 121/67
[2019-10-17] MEDS: Lorazepam 2 MG/ML VIAL SLOW IVP PRN (22:20)
[2019-10-17] MEDS: Vecuronium 10 MG VIAL IV PRN ×2 (22:44→23:44)
[2019-10-17 23:09] VITALS: TEMP 98.8
--- NOTE | 2019-10-18 08:09 | OP ---
DATE OF PROCEDURE: 10/17/2019 INDICATIONS FOR PROCEDURE: Nilay Pinto did well for a period of time this morning then started developing resting tachycardia and shortness of breath. She was placed on BiPAP. She became increasingly agitated. She denied having any chest discomfort. She was observed for about 45 minutes on BiPAP and did not appear to be improving. She was given two 2.5 mg doses of Lopressor that showed that her tachycardia was a sinus tachycardia. A 12-lead was done showing V1 through V4, ST depression and T inversions inferiorly. Cardiology was consulted. I recommended re-intubation. I met with family and answered all their questions. DESCRIPTION OF PROCEDURE: She was placed in the sitting position. A disposable bronchoscope was brought to the bedside. An endotracheal tube, 7.5, was inserted over the bronchoscope. Throat was sprayed with Hurricaine spray. The endotracheal tube was lubricated with lidocaine jelly. Bronchoscope was passed through a bite block into her mouth down to her vocal cords, which appeared normal. She was easily intubated. The tube was secured at 19 cm above the main yoselin. Chest radiograph shows interval development of pulmonary edema. Send a troponin, which came back 4. Repeat EKG in my opinion shows maybe a little more ST depression in her anterior septal leads through V4. Cardiology at this time is being made aware of the above. We will plan to place an external compliance monitor on her as well. Job ID: [id number]
--- NOTE | 2019-10-18 15:13 | DIS ---
DATE OF ADMISSION: 10/16/2019 DATE OF DISCHARGE: 10/18/2019 PRIMARY CARE PROVIDER: Vannesa Wooten MD Transferred to [facility] in [place] on 10/17/2019. FINAL DIAGNOSES: Cardiogenic shock, three-vessel coronary artery disease, mitral insufficiency, acute respiratory failure requiring mechanical ventilation, sepsis syndrome, diabetes mellitus type 2, and history of hypertension. TRANSFER MEDICATIONS: None listed. ALLERGIES: NO KNOWN MEDICAL ALLERGIES. CODE STATUS: Full. PENDING AT TIME OF DISCHARGE: Nothing. HOSPITAL COURSE: [facility] with septic shock syndrome, placed on mechanical ventilation. Pulmonary business management professor consulted. Chest x-ray at that time revealed bilateral infiltrates. ADMITTING LABORATORY DATA: White count 14.4, hemoglobin 13.8, platelet count 416,000. D-dimer was elevated at 1.1. Arterial blood gas; pH 7.32, CO2 of 40, pO2 of 94.9 on 8 of PEEP and 100% O2. Initial lactic acid was 7.3, BUN 19, creatinine 1.06, sodium 136, potassium 3.3. Liver function tests normal. TSH was normal. Blood cultures were drawn. Antibiotics were given. Pressors were started. Cultures were urine and blood, no growth at 48 hours. On 10/17, she was extubated. The patient developed ischemic changes on her EKG, in fact her troponins were 4 at 1 p.m. on 10/17 and 6.6 at 6 o'clock. She was taken to the cardiac civil laboratory technician, where a cardiac cath was done by Dr. Coburn. The cardiac cath demonstrated coronary artery disease with mitral insufficiency. A balloon pump was placed. The patient was re-intubated. Arrangements were made to Dr. Coburn for transfer to [facility] for continuing care. Parenthetically, I was not made aware of the events of 10/17 after 9 o'clock in the morning until the patient was transferred. Job ID: [id number]
--- NOTE | 2019-10-22 12:54 | EKG ---
Test Reason : Blood Pressure : / mmHG Vent. Rate : 127 BPM Atrial Rate : 127 BPM P-R Int : 132 ms QRS Dur : 072 ms QT Int : 322 ms P-R-T Axes : 069 057 -79 degrees QTc Int : 467 ms Sinus tachycardia Abnormal ECG When compared with ECG of 15-OCT-2019 21:57, (Unconfirmed) Nonspecific T wave abnormality, improved in Lateral leads Confirmed by CONCHA WELDON (2) on 10/22/2019 12:54:38 PM Referred By: RASHAD Confirmed By:CONCHA WELDON
--- NOTE | 2019-10-22 13:26 | EKG ---
Test Reason : REPEAT Blood Pressure : / mmHG Vent. Rate : 131 BPM Atrial Rate : 131 BPM P-R Int : 126 ms QRS Dur : 076 ms QT Int : 318 ms P-R-T Axes : 069 065 262 degrees QTc Int : 469 ms Sinus tachycardia Marked ST abnormality, possible anteroseptal subendocardial injury Abnormal ECG When compared with ECG of 17-OCT-2019 12:13, (Unconfirmed) No significant change was found Confirmed by CONCHA WELDON (2) on 10/22/2019 1:25:58 PM Referred By: JORJE Confirmed By:CONCHA WELDON
== END 2019-10-18 00:07 | disposition short-term general hospital (02) | DRG 853 ==
LOC: ERS 21:55 → CCU 10-16 00:56
PROVIDERS: ADMIT Family Medicine; ATTEND Family Medicine
PROC: 0BH18EZ Insertion of Endotracheal Airway into Trachea, Via Natural or Artificial Opening Endoscopic (ICD-10-PCS; 2019-10-16)
PROC: 5A1945Z Respiratory Ventilation, 24-96 Consecutive Hours (ICD-10-PCS; 2019-10-16)
PROC: 5A02210 Assistance with Cardiac Output using Balloon Pump, Continuous (ICD-10-PCS; principal; 2019-10-17)
DX: A41.9 Sepsis, unspecified organism (principal); R57.0 Cardiogenic shock; R65.21 Severe sepsis with septic shock; J96.01 Acute respiratory failure with hypoxia; J15.9 Unspecified bacterial pneumonia; R00.1 Bradycardia, unspecified; I25.10 Atherosclerotic heart disease of native coronary artery without angina pectoris; E11.9 Type 2 diabetes mellitus without complications; I10 Essential (primary) hypertension; I34.0 Nonrheumatic mitral (valve) insufficiency; E78.5 Hyperlipidemia, unspecified; J30.2 Other seasonal allergic rhinitis; M19.90 Unspecified osteoarthritis, unspecified site; Z96.653 Presence of artificial knee joint, bilateral
CPT/HCPCS: 31500; 33967; 36415; 36416; 36556; 51702; 71045; 71275; 80053; 80306; 81003; 81015; 82533; 82550; 82553; 82805; 83605; 83880; 84145; 84443; 84484; 85007; 85025; 85027; 85379; 85610; 85730; 87040; 87086; 87804; 93005; 93010; 93306; 93454; 94002; 94003; 94640; 94660; 96365; 96366; 96367; 96368; 96374; 96375; 96376; C1769; J0171; J0461; J0692; J1160; J1265; J1644; J1940; J1956; J2001; J2060; J2250; J2704; J2930; J3010; J3370; J3490; J7620; Q9967; S0028